=== PATIENT | male | born 1950 | race Caucasian/White ===

== ENCOUNTER 2017-09-13 09:06 | Emergency (ER) | payer MEDICARE, BC ==
[2017-09-13] MEDS ORDERED: oxyCODONE 5 MG TABLET PO STA (09:29)
--- NOTE | 2017-09-13 09:59 | ED Physician Documentation ---
History of Present Illness - Stated complaint Stated Complaint: RIB PX/GLF - Chief complaint Chief Complaint: General - Additonal information Additional information: slipped on wet floor and landed on l side injuring ribs no head neck abd or ext injuries no blood thinners Review of Systems Constitutional: denies: Fever Cardiac: reports: Chest pain / pressure Respiratory: reports: Dyspnea (2/2 pain) GI: denies: Abdominal Pain Musculoskeletal: reports: Back pain (ribs). denies: Extremity pain Endocrine: denies: Easy bruising / bleeding PD PAST MEDICAL HISTORY - Past Surgical History Past Surgical History: Yes - Present Medications Home Medications: Ambulatory Orders Medication Instructions Recorded Confirmed Cyclobenzaprine [Flexeril] 10 mg PO TID PRN #20 tablet 09/13/17 Gabapentin [Neurontin] 300 mg PO TID 09/13/17 09/13/17 Ibuprofen [Motrin] 400 mg PO Q6H PRN #30 tablet 09/13/17 Lidocaine Patch 5% [Lidoderm Patch] 1 each TOP DAILY PRN #10 patch 09/13/17 oxyCODONE [Roxicodone] 5 mg PO Q4-6H PRN #20 tablet 09/13/17 - Allergies Allergies/Adverse Reactions: Allergies Allergy/AdvReac Type Severity Reaction Status Date / Time No Known Drug Allergies Allergy Verified 09/13/17 10:16 - Social History Does the pt smoke?: No Smoking Status: Never smoker Does the pt drink ETOH?: Yes - Immunizations Immunizations are current?: Yes PD ED PE NORMAL - Vitals Vital signs reviewed: Yes - HEENT HEENT: Atraumatic - Neck Neck: No bony TTP - Cardiac Cardiac: RRR - Respiratory Respiratory: No respiratory distress, Clear bilaterally, Other (+ TTP L lateral mid to low ribs with palp and movement) - Abdomen Abdomen: Soft, Non tender, Other (no spleen TTP) - Back Back: No spinal TTP - Derm Derm: Normal color - Neuro Neuro: Alert and oriented X 3 Results - Vitals Vitals: Vital Signs - 24 hr 09/13/17 09/13/17 09:15 10:26 Temperature 36.2 C L 36.7 C Heart Rate 65 64 Respiratory 18 16 Rate Blood Pressure 141/79 H 114/83 H O2 Saturation 100 100 Oxygen O2 Source Room air - Rads (name of study) CXR with ribs Radiology: See rad report (neg per rad but I see a mildly displaced L 8th posterior lateral rib fx, no pneumo hemo or contusion) Departure - Departure Disposition: 01 Home, Self Care Clinical Impression: Rib fracture Qualifiers: Encounter type: initial encounter Rib fracture type: single rib Fracture type: closed Laterality: left Qualified Code(s): S22.32XA - Fracture of one rib, left side, initial encounter for closed fracture Condition: Good Instructions: ED Fx Rib Follow-Up: Ana M Andino PA [Primary Care Provider] - Prescriptions: Cyclobenzaprine [Flexeril] 10 mg PO TID PRN #20 tablet PRN Reason: Spasms Ibuprofen [Motrin] 400 mg PO Q6H PRN #30 tablet PRN Reason: Pain Lidocaine Patch 5% [Lidoderm Patch] 1 each TOP DAILY PRN #10 patch PRN Reason: Pain oxyCODONE [Roxicodone] 5 mg PO Q4-6H PRN #20 tablet PRN Reason: Pain Comments: Your broke the left 8th rib Thankfully there is no lung contusion or collapse. It is safe for you to go home. I have prescribed medication for the pain Please use the incentive spirometer to prevent lung collapse and pneumonia. Follow up with your PMD for a recheck later this week Return if significantly worse as discussed
--- NOTE | 2017-09-13 10:01 | XRAY Report ---
EXAM: LEFT RIB RADIOGRAPHY EXAM DATE: 09/13/2017 09:53 AM. CLINICAL HISTORY: Fall L rib pain. COMPARISON: None. TECHNIQUE: 1 view of the chest and 2 views of the ribs. FINDINGS: Bones: No rib fractures seen. Old left mid clavicular fracture with remodeling. Lungs: No focal opacities. No pneumothorax. No pleural effusions. Mediastinum: Heart and mediastinal contours are unremarkable. Other: None. IMPRESSION: 1. No rib fractures seen 2. Old left midclavicular fracture with remodeling [facility] Referring Provider Line: [phone] SITE ID: [id number]
--- NOTE | 2017-09-13 10:01 | XRAY Preliminary Report ---
Exam: XR RIBS W/PA CHEST LT IMPRESSION: 1. No rib fractures seen 2. Old left midclavicular fracture with remodeling [facility] SITE ID: [id number]
[2017-09-13 10:27] VITALS: BP 114/83
[2017-09-13] MEDS ORDERED: LIDOCAINE PATCH 5% TOP PRN (10:50)
[2017-09-13] MEDS ORDERED: KETOROLAC 60 MG/2 ML VIAL IM STA (11:25)
[2017-09-13] MEDS ORDERED: CYCLOBENZAPRINE 10 MG TABLET PO STA (11:25)
== END 2017-09-13 11:45 | disposition home or self-care (01) ==
LOC: ED 09:06
DX: S22.32XA Fracture of one rib, left side, initial encounter for closed fracture (principal); W01.10XA Fall on same level from slipping, tripping and stumbling with subsequent striking against unspecified object, initial encounter; Y93.E1 Activity, personal bathing and showering
CPT/HCPCS: 71101; 96372; 99283; A9270

== ENCOUNTER 2017-09-27 12:24 | Emergency (ER) | payer MEDICARE, BC ==
--- NOTE | 2017-09-27 15:17 | ED Physician Documentation ---
History of Present Illness - Stated complaint Stated Complaint: SIDE PX/LUMP - Chief complaint Chief Complaint: General - History obtained from History obtained from: Patient - History of Present Illness Timing: Other (67-year-old gentleman who a few weeks ago fell against a countertop and broke his left eighth rib. Over the last 4 days has noted a lump and increased pain in the left upper quadrant. He went to his doctor's office and he was referred here for possible splenic injury. He denies any new lightheadedness or syncope.) Review of Systems Constitutional: denies: Fever, Chills Throat: denies: Dental pain / toothache, Sore throat Cardiac: denies: Chest pain / pressure, Palpitations Respiratory: denies: Dyspnea PD PAST MEDICAL HISTORY - Past Medical History Cardiovascular: None Respiratory: None Neuro: None Endocrine/Autoimmune: None GI: None : None HEENT: None Psych: None Musculoskeletal: None Derm: None - Past Surgical History Past Surgical History: Yes Ortho: Spine surgery - Present Medications Home Medications: Ambulatory Orders Medication Instructions Recorded Confirmed Cyclobenzaprine [Flexeril] 10 mg PO TID PRN #20 tablet 09/13/17 Gabapentin [Neurontin] 300 mg PO TID 09/13/17 09/13/17 Ibuprofen [Motrin] 400 mg PO Q6H PRN #30 tablet 09/13/17 Lidocaine Patch 5% [Lidoderm Patch] 1 each TOP DAILY PRN #10 patch 09/13/17 oxyCODONE [Roxicodone] 5 mg PO Q4-6H PRN #20 tablet 09/13/17 - Allergies Allergies/Adverse Reactions: Allergies Allergy/AdvReac Type Severity Reaction Status Date / Time No Known Drug Allergies Allergy Verified 09/13/17 10:16 - Social History Does the pt smoke?: No Smoking Status: Never smoker Does the pt drink ETOH?: Yes Does the pt have substance abuse?: No - Immunizations Immunizations are current?: Yes - POLST Patient has POLST: No PD ED PE NORMAL - Vitals Vital signs reviewed: Yes - General General: Alert and oriented X 3, No acute distress - Neck Neck: Supple, no meningeal sign, No bony TTP - Cardiac Cardiac: RRR, No murmur - Respiratory Respiratory: No respiratory distress, Clear bilaterally - Abdomen Abdomen: Other (He complains about a lump in the left upper quadrant, I'm unable to feel anything, there is no significant tenderness.) - Neuro Neuro: Alert and oriented X 3, Normal speech Results - Vitals Vitals: Vital Signs - 24 hr 09/27/17 09/27/17 12:35 15:24 Temperature 36.8 C 36.9 C Heart Rate 73 72 Respiratory 16 17 Rate Blood Pressure 135/83 H 114/72 O2 Saturation 99 100 Oxygen O2 Source Room air - Rads (name of study) CT Abd Radiology: EMP read contemporaneously (Left 10th and 11th rib fractures) PD MEDICAL DECISION MAKING - ED course ED course: 67-year-old gentleman with a sensation of a lump in the anterior abdominal wall status post recent rib fracture and sent here for concern of splenic injury so a CT was done after negative bedside ultrasound showing no acute abnormality except for the rib fractures. - Sepsis Event Vital Signs: Vital Signs - 24 hr 18 09/27/17 12:35 15:24 Temperature 36.8 C 36.9 C Heart Rate 73 72 Respiratory 16 17 Rate Blood Pressure 135/83 H 114/72 O2 Saturation 99 100 Oxygen O2 Source Room air Departure - Departure Disposition: 01 Home, Self Care Clinical Impression: Abdominal swelling Rib fracture Qualifiers: Encounter type: subsequent encounter Rib fracture type: multiple ribs Fracture type: closed Laterality: left Fracture healing: with routine healing Qualified Code(s): S22.42XD - Multiple fractures of ribs, left side, subsequent encounter for fracture with routine healing Condition: Good Record reviewed to determine appropriate education?: Yes Instructions: ED Fx Rib Comments: Call your doctor to arrange a follow-up appointment, make the next available appointment. In the interim, return anytime if worse or if new symptoms develop.
[2017-09-27 15:27] VITALS: BP 114/72
--- NOTE | 2017-09-27 16:23 | CT Report ---
Procedure Date: 09/27/2017 Accession Number: [id number] / [id number] Procedure: CT - Abdomen W/O CPT Code: FULL RESULT: EXAM: CT ABDOMEN EXAM DATE: 09/27/2017 03:58 PM. CLINICAL HISTORY: Anterior abdomen pain. History of left eighth rib fracture. LUQ trauma 2 weeks ago. COMPARISON: None. TECHNIQUE: Routine helical CT imaging was performed through the abdomen. IV contrast: None Enteric contrast: No. Reconstruction: Coronal and sagittal. In accordance with CT protocol optimization, one or more of the following dose reduction techniques were utilized for this exam: automated exposure control, adjustment of mA and/or KV based on patient size, or use of iterative reconstructive technique. FINDINGS: Lung Bases: Mitral valve calcifications noted. Mild atelectasis in the bases. Liver: Normal. No masses. Gallbladder/Bile Ducts: Unremarkable. Spleen: Normal. Pancreas: Normal. Adrenal Glands: Normal. Kidneys: Normal. No masses or hydronephrosis. Peritoneal Cavity/Bowel: Mild diverticulosis. No free fluid, free air or adenopathy. No masses or acute inflammatory process. The appendix is well visualized and normal. Vasculature: No aneurysms or other significant abnormality. Bones: Left posterior 10th and 11th rib fractures noted. No other fractures identified. Advanced degenerative disk disease at L4-L5 and L5-S1. Other: None. IMPRESSION: 1. Posterior left 10th and 11th rib fractures. 2. No anterior abnormalities to explain upper abdomen swelling. [facility]
== END 2017-09-27 16:39 | disposition home or self-care (01) ==
LOC: ED 12:24
DX: S22.42XD Multiple fractures of ribs, left side, subsequent encounter for fracture with routine healing (principal); W19.XXXD Unspecified fall, subsequent encounter; R19.02 Left upper quadrant abdominal swelling, mass and lump
CPT/HCPCS: 74150; 99283

== ENCOUNTER 2017-12-16 06:38 | Outpatient (CLI) | payer MEDICARE, BC | END 2017-12-16 06:39 | disposition critical access hospital (66) | LOC: EMS 06:38 | PROVIDERS: ATTEND Surgery | DX: R40.0 Somnolence (principal) | CPT/HCPCS: A0425; A0427 ==

== ENCOUNTER 2017-12-16 07:06 | Inpatient (IN) | payer MEDICARE, BC ==
[2017-12-16] MEDS ORDERED: SODIUM CHLORIDE 0.9% 1,000 ML IV ONE ×2 (07:16→08:59)
--- NOTE | 2017-12-16 07:20 | ED Physician Documentation ---
PD HPI ALTERED MENTAL STATUS - Stated complaint Stated Complaint: AMS - Chief complaint Chief Complaint: Neuro - History obtained from History obtained from: Patient, Family, EMS - History of Present Illness Timing - onset: Today Timing - duration: Minutes Timing - details: Abrupt onset, Still present Quality / character: Less responsive, Confused Associated symptoms: No: Fever, Headache, Stiff neck, Dyspnea, Cough, NVD, Urinary sx, General weakness, Focal weakness, Seizure activity, Syncope Contributing factors: Intoxicated. No: Anticoagulated Basline status: Alert and oriented X 3, Ambulatory, Independent Similar symptoms before: Has not had sx before Recently seen: Not recently seen - Additional information Additional information: 67-year-old male with a prior history of back surgery who is on some trazodone and Neurontin was noted this morning by his to be groggy and confused. She called 911. The patient was not much help with the history. He did admit that he might have taken more of his medications then normal and he has been drinking. He was noted in the field to have hypotension with a systolic blood pressure in the 80s he has been given 600 mL's of saline by the time he arrives to the emergency department. He is groggy but able to answer questions after a delay. Review of Systems Constitutional: denies: Fever Eyes: denies: Decreased vision Ears: denies: Ear pain Nose: denies: Congestion Throat: denies: Sore throat Cardiac: denies: Chest pain / pressure Respiratory: denies: Dyspnea, Cough GI: denies: Abdominal Pain, Nausea, Vomiting : denies: Dysuria, Frequency Skin: denies: Rash Musculoskeletal: reports: Back pain. denies: Neck pain, Extremity pain Neurologic: denies: Generalized weakness, Focal weakness, Numbness PD PAST MEDICAL HISTORY - Past Medical History Cardiovascular: None Respiratory: None Neuro: None Endocrine/Autoimmune: None GI: None : None HEENT: None Psych: None Musculoskeletal: None Derm: None - Past Surgical History Past Surgical History: Yes Ortho: Spine surgery - Present Medications Home Medications: Ambulatory Orders Medication Instructions Recorded Confirmed Gabapentin [Neurontin] 600 mg PO TID 09/13/17 12/16/17 Bupropion HCl [Bupropion Xl] 150 mg PO DAILY 12/16/17 12/16/17 Trazodone HCl 50 mg PO QPM PRN 12/16/17 12/16/17 - Allergies Allergies/Adverse Reactions: Allergies Allergy/AdvReac Type Severity Reaction Status Date / Time No Known Drug Allergies Allergy Verified 12/16/17 07:15 - Social History Does the pt smoke?: No Smoking Status: Never smoker Does the pt drink ETOH?: Yes Does the pt have substance abuse?: No - Immunizations Immunizations are current?: Yes - POLST Patient has POLST: No PD ED PE NORMAL - Vitals Vital signs reviewed: Yes (tachy) - General General: No acute distress, Well developed/nourished, Other (The patient is able to answer appropriately but has delay in execution of motor commands. ) - HEENT HEENT: Atraumatic, PERRL, EOMI, Other (ear plugs are in both ears ) - Neck Neck: Supple, no meningeal sign, No bony TTP - Cardiac Cardiac: RRR, No murmur - Respiratory Respiratory: No respiratory distress, Clear bilaterally - Abdomen Abdomen: Soft, Non tender - Back Back: No CVA TTP, No spinal TTP - Derm Derm: Normal color, Warm and dry, No rash - Extremities Extremities: No deformity, No edema - Neuro Neuro: No motor deficit, No sensory deficit Eye Opening: Spontaneous Motor: Obeys Commands Verbal: Oriented GCS Score: 15 - Psych Psych: Normal mood, Normal affect Results - Vitals Vitals: Vital Signs - 24 hr 12/16/17 12/16/17 07:11 09:15 Temperature 36.3 C L Heart Rate 118 H 58 L Respiratory 18 12 Rate Blood Pressure 99/62 116/80 O2 Saturation 98 100 Oxygen O2 Source Nasal cannula Oxygen Flow Rate 2 - EKG (time done) 0729 Rate: Rate (enter#) (60) Ischemia: Normal ST segments Compare to prior EKG: Old EKG unavailable Computer interpretation: Agree with computer - Labs Labs: Laboratory Tests 12/16/17 12/16/17 12/16/17 07:40 07:40 07:40 WBC 5.4 RBC 3.81 L Hgb 13.7 L Hct 38.7 L MCV 101.7 H MCH 36.1 H MCHC 35.5 RDW 12.3 Plt Count 217 MPV 7.8 Neut # (Auto) 4.2 Lymph # (Auto) 1.0 L [place] # (Auto) 0.2 Eos # (Auto) 0.0 Baso # (Auto) 0.0 Absolute Nucleated RBC 0.00 Nucleated RBC % 0.0 Sodium 141 Potassium 4.3 Chloride 106 Carbon Dioxide 23 Anion Gap 12.0 BUN 16 Creatinine 0.8 Estimated GFR (MDRD) 96 Glucose 111 H Lactic Acid Calcium 8.3 L Total Bilirubin 0.9 AST 50 H ALT 33 Alkaline Phosphatase 40 L Troponin I < 0.04 Total Protein 6.2 L Albumin 3.9 Globulin 2.3 Albumin/Globulin Ratio 1.7 Lipase 25 Urine Color Urine Clarity Urine pH Ur Specific [place] Urine Protein Urine Glucose (UA) Urine Ketones Urine Occult Blood Urine Nitrite Urine Bilirubin Urine Urobilinogen Ur Leukocyte Esterase Ur Microscopic Review Urine Culture Comments Urine Opiates Screen Ur Oxycodone Screen Urine Methadone Screen Ur Propoxyphene Screen Ur Barbiturates Screen Ur Tricyclics Screen Ur Phencyclidine Scrn Ur Amphetamine Screen U Methamphetamines Scrn U Benzodiazepines Scrn Urine Cocaine Screen U Cannabinoids Screen Ethyl Alcohol 7.5 12/16/17 12/16/17 07:40 09:20 WBC RBC Hgb Hct MCV MCH MCHC RDW Plt Count MPV Neut # (Auto) Lymph # (Auto) [place] # (Auto) Eos # (Auto) Baso # (Auto) Absolute Nucleated RBC Nucleated RBC % Sodium Potassium Chloride Carbon Dioxide Anion Gap BUN Creatinine Estimated GFR (MDRD) Glucose Lactic Acid 2.3 H Calcium Total Bilirubin AST ALT Alkaline Phosphatase Troponin I Total Protein Albumin Globulin Albumin/Globulin Ratio Lipase Urine Color YELLOW Urine Clarity CLEAR Urine pH 6.5 Ur Specific [place] 1.020 Urine Protein NEGATIVE Urine Glucose (UA) NEGATIVE Urine Ketones NEGATIVE Urine Occult Blood NEGATIVE Urine Nitrite NEGATIVE Urine Bilirubin NEGATIVE Urine Urobilinogen 0.2 (NORMAL) Ur Leukocyte Esterase NEGATIVE Ur Microscopic Review NOT INDICATED Urine Culture Comments NOT INDICATED Urine Opiates Screen NEGATIVE Ur Oxycodone Screen NEGATIVE Urine Methadone Screen NEGATIVE Ur Propoxyphene Screen NEGATIVE Ur Barbiturates Screen NEGATIVE Ur Tricyclics Screen NEGATIVE Ur Phencyclidine Scrn NEGATIVE Ur Amphetamine Screen NEGATIVE U Methamphetamines Scrn NEGATIVE U Benzodiazepines Scrn NEGATIVE Urine Cocaine Screen NEGATIVE U Cannabinoids Screen NEGATIVE Ethyl Alcohol - Rads (name of study) CT head without Radiology: Prelim report reviewed (Impression: No acute intracranial hemorrhage , CT evidence of acute infarct, mass-effect, or other acute abnormality.), EMP read indepedently, See rad report CXR 2 view Radiology: Prelim report reviewed ( Impression: No consolidation evident.), EMP read indepedently, See rad report Procedures - IVC sono (time) 0715 Bedside IVC sono: IVC measures (cm) (1.54), Euvolemia (after 600ml in.) PD MEDICAL DECISION MAKING - ED course Complexity details: reviewed old records, reviewed results, re-evaluated patient , considered differential, d/w patient, d/w family ED course: 67-year-old male with a history of depression has had an increase in his depression recently and it appears last night he may have taken an overdose of his trazodone. He woke this morning very groggy his was unable to arouse him and he comes to the emergency department now with altered level of consciousness. He arrives to the emergency department with hypotension that is responsive to fluids and over a period of 3 hours he has improvement in his level of consciousness and he does admit to taking all the medications and all 3 of his pill bottles last night. Dr. Child is consulted in the case and will admit the patient to the CCU for medical clearance and psychiatric evaluation. - Sepsis Event Vital Signs: Vital Signs - 24 hr 12/16/17 12/16/17 07:11 09:15 Temperature 36.3 C L Heart Rate 118 H 58 L Respiratory 18 12 Rate Blood Pressure 99/62 116/80 O2 Saturation 98 100 Oxygen O2 Source Nasal cannula Oxygen Flow Rate 2 Departure - Departure Disposition: 66 [facility] DC/Xfer Clinical Impression: Altered mental status Qualifiers: Altered mental status type: transient alteration of awareness Qualified Code(s) : R40.4 - Transient alteration of awareness Medication overdose Qualifiers: Encounter type: initial encounter Injury intent: undetermined intent Qualified Code(s): T50.904A - Poisoning by unspecified drugs, medicaments and biological substances, undetermined, initial encounter Condition: Stable
[2017-12-16 07:57] LABS: BASOPHILS % (AUTO) 0.4 %; EOSINOPHILS % (AUTO) 0.2 %; HGB - HEMOGLOBIN 13.7 g/dL (14.0-18.0); LYMPHOCYTES % (AUTO) 17.9 %; MEAN CORPUSCULAR HEMOGLOBIN 36.1 pg (27.0-31.0); MEAN CORPUSCULAR HGB CONC 35.5 g/dL (32.0-36.0); MEAN CORPUSCULAR VOLUME 101.7 fL (80.0-94.0); MEAN PLATELET VOLUME 7.8 fL (7.4-11.4); MONOCYTES # (AUTO) 0.2 10^3/uL (0.0-1.0); MONOCYTES % (AUTO) 4.4 %; NEUTROPHILS # (AUTO) 4.2 10^3/uL (1.5-6.6); NEUTROPHILS % (AUTO) 77.1 %; PLT - PLATELET COUNT 217 10^3/uL (130-450); RED BLOOD COUNT 3.81 10^6/uL (4.70-6.10); RED CELL DISTRIBUTION WIDTH 12.3 % (12.0-15.0); WHITE BLOOD COUNT 5.4 x10^3/uL (4.8-10.8)
[2017-12-16 08:10] LABS: ALBUMIN 3.9 g/dL (3.2-5.5); ALBUMIN/GLOBULIN RATIO 1.7 (1.0-2.2); BILIRUBIN,TOTAL 0.9 mg/dL (0.2-1.0); CALCIUM 8.3 mg/dL (8.5-10.3); CREATININE 0.8 mg/dL (0.6-1.2); TOTAL PROTEIN 6.2 g/dL (6.7-8.2)
--- NOTE | 2017-12-16 09:15 | CT Report ---
Reason: altered LOC Procedure Date: 12/16/2017 Accession Number: [id number] / [id number] Procedure: CT - Head W/O CPT Code: FULL RESULT: EXAM: CT HEAD EXAM DATE: 12/16/2017 09:01 AM. CLINICAL HISTORY: Altered level of consciousness. COMPARISON: None. TECHNIQUE: Multiaxial CT images were obtained from the foramen magnum to the vertex. Reformats: Coronal. IV contrast: None. In accordance with CT protocol optimization, one or more of the following dose reduction techniques were utilized for this exam: automated exposure control, adjustment of mA and/or KV based on patient size, or use of iterative reconstructive technique. FINDINGS: Parenchyma: No intraparenchymal hemorrhage. No evidence of mass, midline shift, or CT findings of infarction. Sinha-white differentiation is distinct. Extraaxial Spaces: There is an incidental probable arachnoid cyst along the medial aspect of the left lobe of the cerebellum adjacent to the falx. no hemorrhagic subdural or epidural collections identified. Ventricles: Normal in size and position. Sinuses and Orbits: Imaged paranasal sinuses, orbits, and mastoids show no significant abnormality. Bones: No evidence of fracture or calvarial defect. Other: None. IMPRESSION: No intracranial hemorrhage, CT evidence of acute infarct, mass effect, or other acute abnormality. [facility]
[2017-12-16 09:36] LABS: MUDS CUTOFF CONCENTRATIONS CUTOFF CONC BELOW:
[2017-12-16 09:39] LABS: BILIRUBIN,URINE NEGATIVE (NEGATIVE); GLUCOSE, URINE (UA) NEGATIVE (NEGATIVE); KETONES,URINE (UA) NEGATIVE (NEGATIVE); LEUKOCYTE ESTERASE, URINE NEGATIVE (NEGATIVE); NITRITE,URINE NEGATIVE (NEGATIVE); OCCULT BLOOD,URINE NEGATIVE (NEGATIVE); PH,URINE 6.5 PH (5.0-7.5); PROTEIN,URINE NEGATIVE (NEGATIVE); UROBILINOGEN,URINE 0.2 (NORMAL) E.U./dL (NORMAL)
[2017-12-16 09:49] LABS: AMPHETAMINE SCREEN,URINE NEGATIVE (NEGATIVE); BENZODIAZEPINES SCREEN, URINE NEGATIVE (NEGATIVE); CLARITY,URINE CLEAR (CLEAR); COCAINE SCREEN URINE NEGATIVE (NEGATIVE); METHADONE SCREEN, URINE NEGATIVE (NEGATIVE); METHAMPHETAMINES SCREEN, URINE NEGATIVE (NEGATIVE); OPIATE SCREEN, URINE NEGATIVE (NEGATIVE); OXYCODONE SCREEN, URINE NEGATIVE (NEGATIVE); PROPOXYPHENE SCREEN, URINE NEGATIVE (NEGATIVE); TRICYCLIC ANTIDEPRESSANT,URINE NEGATIVE (NEGATIVE)
--- NOTE | 2017-12-16 09:54 | XRAY Report ---
Reason: altered LOC hypotensive Procedure Date: 12/16/2017 Accession Number: [id number] / [id number] Procedure: XR - Chest 2 View X-Ray CPT Code: 98998 FULL RESULT: EXAM: CHEST RADIOGRAPHY EXAM DATE: 12/16/2017 09:07 AM. CLINICAL HISTORY: Altered LOC hypotensive. COMPARISON: RIBS W/PA CHEST LT 09/13/2017 XR CHEST PA AND LAT 01/02/2010. TECHNIQUE: 2 views. FINDINGS: Lungs/Pleura: No focal opacities evident. No pleural effusion. No pneumothorax. Normal volumes. Mediastinum: Heart and mediastinal contours are unremarkable. Other: Midthoracic spine degenerative disk changes with mild kyphosis. IMPRESSION: No consolidation evident. [facility]
[2017-12-16] MEDS ORDERED: PROCHLORPERAZINE 10 MG/2 ML VIAL IVP PRN (10:46)
[2017-12-16] MEDS: D5NS W/20 MEQ KCL 1,000 ML IV SCH ×3 (12:46→22:54)
[2017-12-16] MEDS: SODIUM CHLORIDE FLUSH 0.9% 10 ML SYRINGE IVP PRN (13:00)
[2017-12-16] MEDS: PANTOPRAZOLE 40 MG VIAL IVP SCH ×2 (13:41→21:04)
[2017-12-16] MEDS ORDERED: LORazepam 2 MG/ML VIAL IVP PRN (15:49)
[2017-12-16] MEDS: SODIUM CHLORIDE FLUSH 0.9% 10 ML SYRINGE IVP SCH ×2 (16:48→21:04)
--- NOTE | 2017-12-16 21:51 | HISTORY & PHYSICAL EXAMINATION ---
DATE OF SERVICE: 12/16/2017 Physician: Tracy Grider MD HISTORY OF PRESENT ILLNESS: This is a 67-year-old white male with a history of alcohol abuse, depression, complex PTSD, possibly 1 prior suicide attempt. The found him groggy and unarousable this morning and called 911. In the ambulance, he slowly began to awake and admitted that he took the entire contents of all 3 of his pill bottles with an intention to commit suicide. These bottles were filled with 170 tablets in total, and he states that he took them with peanut butter because he read that having peanut butter with a pill overdose prevents them from being vomited up. The pills were trazodone, bupropion, and gabapentin. In the emergency room, he was very somnolent and also mildly hypotensive. He was started on IV fluids and stabilized and also has slowly begun to awaken over the past several hours. He tells me that he is deeply worried about the state of people and their superficialness and [place]'s greed and the [employer] presidency, and for this reason he wanted to diel. The hints at the fact that he has done this previously. The also reports that he has complex PTSD. The patient states he has seen a psychiatrist in the past for 7 years and now is also following a provider for mental health for the last 3 years. He has not said the word suicide or that he still wants to kill himself. However, asked in different ways what his future plans are, he stated, "You want me to tell you if I have suicidal ideations in order to be institutionalized and then not released until someone else decides, right?" PAST MEDICAL HISTORY 1. Depression. 2. PTSD. 3. Alcohol abuse. 4. Prior suicide attempt, possibly. MEDICATIONS 1. Trazodone 50 mg every evening. 2. Gabapentin 600 mg t.i.d. 3. Bupropion XL 150 mg daily. ALLERGIES: NONE. SOCIAL HISTORY: Smoking: None. Alcohol use: 6-10 beers per day. Illicit drug use: Currently none but heavy in his earlier life. He states that he was in [facility] 2 times. He states he got complex PTSD after being in [place]. REVIEW OF SYSTEMS: A comprehensive review of systems was performed, and the pertinent positives are in the HPI. FAMILY HISTORY: No inherited diseases. PHYSICAL EXAMINATION GENERAL: White male who is speaking slowly but clearly with a hoarse voice. He is in a supine position. He is in the ICU with one-to-one observation. VITAL SIGNS: Blood pressure 118/82, pulse of 56, sinus rhythm, afebrile, room air saturation 100%. HEENT: Reveals dry oral mucosa. Good dentition. NECK: Without JVD. No carotid bruits. LUNGS: Clear. HEART: Sounds normal. ABDOMEN: Soft with positive bowel sounds, nontender. No organomegaly. EXTREMITIES: No clubbing, cyanosis, edema. NEUROLOGIC: Intact but appears lethargic and is bradykinetic. DIAGNOSTIC STUDIES: EKG: Normal sinus rhythm and within normal limits. Chest x-ray within normal limits. LABORATORY STUDIES: Normal electrolytes. Normal BUN and creatinine. Lactic acid 2.3. AST 50, ALT 33. Troponin not detectable. Lipase normal. Toxicology of the urine showed alcohol level of 7.5 and otherwise negative. CBC showed a white count of 5.4, hemoglobin 13.7, with MCV elevated at 101, platelet count 217. Urinalysis unremarkable. IMPRESSION/DIAGNOSES 1. Intentional suicide overdose with pills. 2. Dehydration. 3. Altered mental status after sedative intake. 4. Depression history. 5. Alcohol abuse history. 6. Complex posttraumatic stress disorder history. PLAN: Continue in the ICU with one-to-one observation for potential suicide attempt. Contact social work and contact the Department of Mental Health when he is medically stable for further management of this suicide attempt. Begin CIWA protocol to assess for alcohol withdrawal, and Ativan will be used to treat that. Continue with IV hydration. While he is lethargic, clear liquids will be started, and if he does awaken, the diet can be advanced. CODE STATUS: FULL CODE. DEEP VENOUS THROMBOSIS PROPHYLAXIS: MARÍA stockings and SCDs. ATTESTATION: The patient is expected to be discharged or transferred to another facility within 96 hours: Yes. TD: 12/16/2017 16:09 RIGOBERTO
[2017-12-17] MEDS: D5NS W/20 MEQ KCL 1,000 ML IV SCH ×5 (03:58→23:12)
[2017-12-17 05:41] LABS: BASOPHILS % (AUTO) 0.6 %; EOSINOPHILS # (AUTO) 0.1 10^3/uL (0.0-0.7); EOSINOPHILS % (AUTO) 1.8 %; LYMPHOCYTES # (AUTO) 1.9 10^3/uL (1.5-3.5); LYMPHOCYTES % (AUTO) 27.5 %; MEAN CORPUSCULAR HEMOGLOBIN 36.7 pg (27.0-31.0); MEAN CORPUSCULAR HGB CONC 35.5 g/dL (32.0-36.0); MEAN CORPUSCULAR VOLUME 103.2 fL (80.0-94.0); MEAN PLATELET VOLUME 8.2 fL (7.4-11.4); MONOCYTES # (AUTO) 0.5 10^3/uL (0.0-1.0); MONOCYTES % (AUTO) 7.9 %; NEUTROPHILS # (AUTO) 4.2 10^3/uL (1.5-6.6); NEUTROPHILS % (AUTO) 62.2 %; PLT - PLATELET COUNT 180 10^3/uL (130-450); RED BLOOD COUNT 3.28 10^6/uL (4.70-6.10); RED CELL DISTRIBUTION WIDTH 12.3 % (12.0-15.0); WHITE BLOOD COUNT 6.8 x10^3/uL (4.8-10.8)
[2017-12-17 06:13] LABS: ALBUMIN 3.1 g/dL (3.2-5.5); ALBUMIN/GLOBULIN RATIO 1.6 (1.0-2.2); CALCIUM 7.4 mg/dL (8.5-10.3); CREATININE 0.9 mg/dL (0.6-1.2); MAGNESIUM 2.2 mg/dL (1.7-2.8); PHOSPHORUS 2.5 mg/dL (2.5-4.6)
[2017-12-17] MEDS: SODIUM CHLORIDE FLUSH 0.9% 10 ML SYRINGE IVP PRN ×3 (06:38→20:26)
[2017-12-17] MEDS ORDERED: ACETAMINOPHEN 325 MG TABLET PO PRN (07:15)
[2017-12-17] MEDS ORDERED: ONDANSETRON 4 MG/2 ML VIAL IVP PRN (07:15)
[2017-12-17 07:38] LABS: VBG PH 7.338 (7.31-7.41)
[2017-12-17] MEDS: SODIUM CHLORIDE FLUSH 0.9% 10 ML SYRINGE IVP SCH ×2 (08:21→16:38)
[2017-12-17] MEDS: PANTOPRAZOLE 40 MG VIAL IVP SCH ×2 (08:22→20:26)
[2017-12-17] MEDS ORDERED: CALCIUM GLUCONATE 1,000 MG in SODIUM CHLORIDE 0.9% 50 ML IV ONE (08:30)
[2017-12-17] MEDS: POLYETHYLENE GLYCOL 3350 17 GM PACKET PO SCH (08:42)
[2017-12-17] MEDS: MORPHINE 2 MG/ML CARPUJECT IVP PRN ×2 (10:01→20:26)
--- NOTE | 2017-12-17 11:09 | PROVIDER PROGRESS NOTE ---
Assessment/Plan - Problem List (1) Medication overdose Qualifiers: Encounter type: initial encounter Injury intent: undetermined intent Qualified Code(s): T50.904A - Poisoning by unspecified drugs, medicaments and biological substances, undetermined, initial encounter Assessment/Plan: The RN was informed that he also had a bottle of Propranolol which was part of the 170 tablets that he ingested. He has been bradycardic since admission. Continue telemetry Continue 1:1 monitoring for suicide risk. (2) Altered mental status Qualifiers: Altered mental status type: transient alteration of awareness Qualified Code(s): R40.4 - Transient alteration of awareness Assessment/Plan: The patient was a 13 on the CIWA scale this am and Ativan was given. Now he is somnolent. He is now 24 hours since his last alcohol intake. Continue to monitor for alcohol withdrawal and DTs. Continue supportive Care for the antidepressants (Bupropion tablets), sedatives (Trazadone) and pain meds (Neurontin) that he swallowed. He is awakening to take 100% of his clear liquid diet. Will advance diet to soft diet. (3) Alcohol withdrawal Assessment/Plan: The patient was a 13 on the CIWA scale this am and Ativan was given. Now he is somnolent. He is now 24 hours since his last alcohol intake. Continue to monitor for alcohol withdrawal and DTs. Continue CIWA protocol. Will check B12 and Folate levels. Will start daily Thiamine. (4) Joint pain Assessment/Plan: Unclear if this is from his drug overdose or a sign of impending fever/infection , or his chronic symptom. Will treat pain with iv Ketorolac to avoid narcotic meds and potentially hepatotoxic meds like Acetominophen. Monitor LFTs daily. - Current Meds Current Meds: Current Medications Generic Name Dose Route Start Last Admin Trade Name Freq PRN Reason Stop Dose Admin Potassium Chloride/Dextrose/Sod Cl 1,000 mls @ 200 mls/hr 12/16/17 11:00 06/04 10:15 IV 0 mls/hr .Q5H ARNOL Infusion Lorazepam 2 mg 12/16/17 15:49 12/17/17 06:38 Ativan Inj (Vial) IVP 2 mg Q2H PRN Administration Anxiety Morphine Sulfate 2 mg 12/17/17 07:19 09/02/18 10:01 Morphine (Carpuject) IVP 2 mg Q2HR PRN Administration PAIN Pantoprazole Sodium 40 mg 12/16/17 11:00 12/17/17 08:22 Protonix IVP 40 mg BID ARNOL Administration Polyethylene Glycol 17 gm 12/17/17 09:00 12/17/17 08:42 Miralax PO 17 gm DAILY ARNOL Administration Sodium Chloride 10 ml 12/16/17 17:00 12/17/17 08:21 Normal Saline Flush 0.9% IVP 10 ml 0100,0900,1700 ARNOL Administration Sodium Chloride 10 ml 12/16/17 10:46 12/17/17 06:38 Normal Saline Flush 0.9% IVP 10 ml PRN PRN Administration NEEDED PER PROVIDER ORDERS - Lab Result Fish Bone Diagrams: 12/17/17 05:04 12/17/17 05:04 - Additional Planning My Orders: My Active Orders 12/16/17 10:54 CIWA-Ar Score Assessment [RC] Q4H 12/16/17 15:49 LORazepam INJ [Ativan Inj (Vial)] 2 mg IVP Q2H PRN 12/17/17 09:00 Polyethylene Glycol 3350 [Miralax] 17 gm PO DAILY Subjective - Subjective Patient Reports: Feeling Better, Resting Comfortably Nursing Reports: Other (BP slightly elevated but no tachycardia. Compains of headache and joint aches.) Objective Vital Signs: Vital Signs - 24 hr 12/16/17 12/16/17 12/16/17 12:00 12:15 12:30 Temperature 36.4 C L Heart Rate [ 57 L 56 L 58 L Monitoring electrodes] Respiratory 14 11 L 13 Rate Blood Pressure 111/77 121/78 122/79 [Right Brachial artery] O2 Saturation 97 99 98 12/16/17 12/16/17 12/16/17 12:45 13:00 13:30 Temperature Heart Rate [ 56 L 56 L 56 L Monitoring electrodes] Respiratory 14 15 12 Rate Blood Pressure 118/82 H 92/81 H 112/69 [Right Brachial artery] O2 Saturation 100 98 100 12/16/17 12/16/17 12/16/17 14:00 15:00 16:00 Temperature 36.4 C L Heart Rate [ 54 L 58 L 57 L Monitoring electrodes] Respiratory 13 13 16 Rate Blood Pressure 109/85 H 116/63 116/73 [Right Brachial artery] O2 Saturation 98 97 100 12/16/17 12/16/17 12/16/17 17:00 18:00 19:00 Temperature Heart Rate [ 57 L 60 57 L Monitoring electrodes] Respiratory 14 21 18 Rate Blood Pressure 115/72 105/75 120/78 [Right Brachial artery] O2 Saturation 98 99 95 12/16/17 12/16/17 12/16/17 20:00 21:00 22:00 Temperature 36.6 C Heart Rate [ 58 L 60 62 Monitoring electrodes] Respiratory 19 17 17 Rate Blood Pressure 111/73 89/54 L 96/60 [Right Brachial artery] O2 Saturation 96 94 95 12/16/17 12/17/17 12/17/17 23:00 00:00 01:00 Temperature Heart Rate [ 62 65 61 Monitoring electrodes] Respiratory 19 21 26 H Rate Blood Pressure 102/61 102/65 102/72 [Right Brachial artery] O2 Saturation 93 94 95 12/17/17 12/17/17 12/17/17 02:00 03:00 04:00 Temperature Heart Rate [ 61 61 60 Monitoring electrodes] Respiratory 19 18 21 Rate Blood Pressure 93/57 L 102/71 103/66 [Right Brachial artery] O2 Saturation 95 94 96 12/17/17 12/17/17 12/17/17 05:00 06:00 07:03 Temperature Heart Rate [ 60 60 53 L Monitoring electrodes] Respiratory 15 16 14 Rate Blood Pressure 111/54 L 110/72 127/86 H [Right Brachial artery] O2 Saturation 97 96 94 12/17/17 12/17/17 12/17/17 08:00 09:00 10:00 Temperature 36.6 C Heart Rate [ 58 L 57 L 53 L Monitoring electrodes] Respiratory 20 21 16 Rate Blood Pressure 98/63 127/87 H 136/81 H [Right Brachial artery] O2 Saturation 95 95 100 12/17/17 11:00 Temperature Heart Rate [ 53 L Monitoring electrodes] Respiratory 13 Rate Blood Pressure 132/90 H [Right Brachial artery] O2 Saturation 98 Oxygen O2 Source Room air I&O (Last 24 Hrs): Intake and Output Totals x24h 12/15/17 12/16/17 12/17/17 23:59 23:59 23:59 Intake Total 3873.333 4243.333 Output Total 775 1800 Balance 3098.333 2443.333 General: Alert, Oriented x3, Other (Hoarseness of voice) HEENT: Other (Dry oral mucosa) Neck: Supple Neuro: Non Focal Cardiovascular: No murmurs Respiratory: No respiratory distress, Breath sounds nml Abdomen: Soft Extremities: No edema - Results Results: Laboratory Results WBC 6.8 x10^3/uL (4.8-10.8) 12/17/17 05:04 RBC 3.28 10^6/uL (4.70-6.10) L 12/17/17 05:04 Hgb 12.0 g/dL (14.0-18.0) L 12/17/17 05:04 Hct 33.9 % (42.0-52.0) L 12/17/17 05:04 MCV 103.2 fL (80.0-94.0) H 12/17/17 05:04 MCH 36.7 pg (27.0-31.0) H 12/17/17 05:04 MCHC 35.5 g/dL (32.0-36.0) 12/17/17 05:04 RDW 12.3 % (12.0-15.0) 12/17/17 05:04 Plt Count 180 10^3/uL (130-450) 12/17/17 05:04 MPV 8.2 fL (7.4-11.4) 12/17/17 05:04 Neut # (Auto) 4.2 10^3/uL (1.5-6.6) 12/17/17 05:04 Lymph # (Auto) 1.9 10^3/uL (1.5-3.5) 12/17/17 05:04 [place] # (Auto) 0.5 10^3/uL (0.0-1.0) 12/17/17 05:04 Eos # (Auto) 0.1 10^3/uL (0.0-0.7) 12/17/17 05:04 Baso # (Auto) 0.0 10^3/uL (0.0-0.1) 12/17/17 05:04 Absolute Nucleated RBC 0.01 x10^3/uL 12/17/17 05:04 Nucleated RBC % 0.1 /100WBC 12/17/17 05:04 VBG pH 7.338 (7.31-7.41) 12/17/17 07:25 Ionized Calcium 1.09 mmol/L (1.15-1.33) L 12/17/17 07:25 Sodium 140 mmol/L (135-145) 12/17/17 05:04 Potassium 3.7 mmol/L (3.5-5.0) 12/17/17 05:04 Chloride 111 mmol/L (101-111) 12/17/17 05:04 Carbon Dioxide 24 mmol/L (21-32) 12/17/17 05:04 Anion Gap 5.0 (6-13) L 12/17/17 05:04 BUN 8 mg/dL (6-20) 12/17/17 05:04 Creatinine 0.9 mg/dL (0.6-1.2) 12/17/17 05:04 Estimated GFR (MDRD) 84 (>89) L 12/17/17 05:04 Glucose 129 mg/dL (70-100) H 12/17/17 05:04 Lactic Acid 1.1 mmol/L (0.5-2.2) 12/16/17 14:40 Calcium 7.4 mg/dL (8.5-10.3) L 12/17/17 05:04 Phosphorus 2.5 mg/dL (2.5-4.6) 12/17/17 05:04 Magnesium 2.2 mg/dL (1.7-2.8) 12/17/17 05:04 Total Bilirubin 1.0 mg/dL (0.2-1.0) 12/17/17 05:04 AST 53 IU/L (10-42) H 12/17/17 05:04 ALT 27 IU/L (10-60) 12/17/17 05:04 Alkaline Phosphatase 31 IU/L (42-121) L 12/17/17 05:04 Troponin I < 0.04 ng/mL (<0.49) 12/16/17 07:40 Total Protein 5.0 g/dL (6.7-8.2) L 12/17/17 05:04 Albumin 3.1 g/dL (3.2-5.5) L 12/17/17 05:04 Globulin 1.9 g/dL (2.1-4.2) L 12/17/17 05:04 Albumin/Globulin Ratio 1.6 (1.0-2.2) 12/17/17 05:04 Lipase 25 U/L (22-51) 12/16/17 07:40 Urine Color YELLOW 12/16/17 09:20 Urine Clarity CLEAR (CLEAR) 12/16/17 09:20 Urine pH 6.5 PH (5.0-7.5) 12/16/17 09:20 Ur Specific [place] 1.020 (1.002-1.030) 12/16/17 09:20 Urine Protein NEGATIVE mg/dL (NEGATIVE) 12/16/17 09:20 Urine Glucose (UA) NEGATIVE mg/dL (NEGATIVE) 12/16/17 09:20 Urine Ketones NEGATIVE mg/dL (NEGATIVE) 12/16/17 09:20 Urine Occult Blood NEGATIVE (NEGATIVE) 12/16/17 09:20 Urine Nitrite NEGATIVE (NEGATIVE) 12/16/17 09:20 Urine Bilirubin NEGATIVE (NEGATIVE) 12/16/17 09:20 Urine Urobilinogen 0.2 (NORMAL) E.U./dL (NORMAL) 12/16/17 09:20 Ur Leukocyte Esterase NEGATIVE (NEGATIVE) 12/16/17 09:20 Ur Microscopic Review NOT INDICATED 12/16/17 09:20 Urine Culture Comments NOT INDICATED 12/16/17 09:20 Urine Opiates Screen NEGATIVE (NEGATIVE) 12/16/17 09:20 Ur Oxycodone Screen NEGATIVE (NEGATIVE) 12/16/17 09:20 Urine Methadone Screen NEGATIVE (NEGATIVE) 12/16/17 09:20 Ur Propoxyphene Screen NEGATIVE (NEGATIVE) 12/16/17 09:20 Ur Barbiturates Screen NEGATIVE (NEGATIVE) 12/16/17 09:20 Ur Tricyclics Screen NEGATIVE (NEGATIVE) 12/16/17 09:20 Ur Phencyclidine Scrn NEGATIVE (NEGATIVE) 12/16/17 09:20 Ur Amphetamine Screen NEGATIVE (NEGATIVE) 12/16/17 09:20 U Methamphetamines Scrn NEGATIVE (NEGATIVE) 12/16/17 09:20 U Benzodiazepines Scrn NEGATIVE (NEGATIVE) 12/16/17 09:20 Urine Cocaine Screen NEGATIVE (NEGATIVE) 12/16/17 09:20 U Cannabinoids Screen NEGATIVE (NEGATIVE) 12/16/17 09:20 Ethyl Alcohol 7.5 mg/dL 12/16/17 07:40 ABX Reporting Has patient been on IV antibiotics over the past 48 hours?: No
[2017-12-17 12:06] LABS: FOLATE 19.46 ng/mL (5.90 - >24.8)
[2017-12-17] MEDS ORDERED: THIAMINE INJ 100 MG, FOLIC ACID INJ 1 MG in SODIUM CHLORIDE 0.9% 100ML 100 ML IV SCH (15:30)
[2017-12-17] MEDS: KETOROLAC 30 MG/ML VIAL IVP PRN (17:42)
[2017-12-18] MEDS: SODIUM CHLORIDE FLUSH 0.9% 10 ML SYRINGE IVP SCH ×4 (00:32→15:23)
[2017-12-18] MEDS: KETOROLAC 30 MG/ML VIAL IVP PRN ×3 (02:51→15:23)
[2017-12-18] MEDS: SODIUM CHLORIDE FLUSH 0.9% 10 ML SYRINGE IVP PRN (02:51)
[2017-12-18] MEDS: D5NS W/20 MEQ KCL 1,000 ML IV SCH (03:59)
[2017-12-18 05:30] LABS: BASOPHILS % (AUTO) 0.6 %; EOSINOPHILS # (AUTO) 0.2 10^3/uL (0.0-0.7); EOSINOPHILS % (AUTO) 2.7 %; HGB - HEMOGLOBIN 12.6 g/dL (14.0-18.0); LYMPHOCYTES % (AUTO) 26.9 %; MEAN CORPUSCULAR HEMOGLOBIN 36.8 pg (27.0-31.0); MEAN CORPUSCULAR VOLUME 102.4 fL (80.0-94.0); MEAN PLATELET VOLUME 7.9 fL (7.4-11.4); MONOCYTES # (AUTO) 0.6 10^3/uL (0.0-1.0); MONOCYTES % (AUTO) 8.6 %; NEUTROPHILS # (AUTO) 4.5 10^3/uL (1.5-6.6); NEUTROPHILS % (AUTO) 61.2 %; PLT - PLATELET COUNT 174 10^3/uL (130-450); RED BLOOD COUNT 3.43 10^6/uL (4.70-6.10); RED CELL DISTRIBUTION WIDTH 12.1 % (12.0-15.0); WHITE BLOOD COUNT 7.3 x10^3/uL (4.8-10.8)
[2017-12-18 05:40] LABS: ALBUMIN 3.3 g/dL (3.2-5.5); ALBUMIN/GLOBULIN RATIO 1.5 (1.0-2.2); BILIRUBIN,TOTAL 0.7 mg/dL (0.2-1.0); CALCIUM 8.2 mg/dL (8.5-10.3); CREATININE 0.6 mg/dL (0.6-1.2); MAGNESIUM 1.9 mg/dL (1.7-2.8); PHOSPHORUS 2.8 mg/dL (2.5-4.6); TOTAL PROTEIN 5.5 g/dL (6.7-8.2)
[2017-12-18] MEDS: PANTOPRAZOLE 40 MG TABLET PO SCH (08:18)
[2017-12-18] MEDS: POLYETHYLENE GLYCOL 3350 17 GM PACKET PO SCH (08:22)
[2017-12-18] MEDS: THIAMINE 100 MG TABLET PO SCH ×2 (08:23→12:26)
--- NOTE | 2017-12-18 13:53 | PROVIDER PROGRESS NOTE ---
Assessment/Plan - Problem List (1) Medication overdose Qualifiers: Encounter type: initial encounter Injury intent: undetermined intent Qualified Code(s): T50.904A - Poisoning by unspecified drugs, medicaments and biological substances, undetermined, initial encounter Assessment/Plan: Another medication that he took in overdose, was shared with me: He took Clonezepam. He also was able to tell me today that he took "96 pills of Propranolol", in addition to the others discussed yesterday. The pharmacy has the bottles which state Propranolol (not Propranolol [place]) 20 mg, 1 po daily prn anxiety. He is not cleared medically yet for Mental Health to accept him into a Psych unit, since he has lethargy and bradycardia and he is at the 3rd day post- alcohol intake and still at risk of going through alcohol withdrawal. I asked Social Work to see him today, since he requested a visit from Social Work. (2) Altered mental status Qualifiers: Altered mental status type: transient alteration of awareness Qualified Code(s): R40.4 - Transient alteration of awareness Assessment/Plan: The patient is still lethargic with slow speech. He is able to remember and/or share more about the details of his drug ingestions. He is awake enough to feed himself and tolerate solid food. (3) Alcohol withdrawal Assessment/Plan: Patient remains on a CIWA protocol. Labs show no B12 or Folate deficiency. (4) Joint pain Assessment/Plan: iv NSASIDs are prescribed prn for pain. - Current Meds Current Meds: Current Medications Generic Name Dose Route Start Last Admin Trade Name Freq PRN Reason Stop Dose Admin Ketorolac Tromethamine 30 mg 12/17/17 11:12 12/18/17 09:11 Toradol Inj (30mg) IVP 12/22/17 11:11 30 mg Q6HR PRN Administration PAIN Lorazepam 2 mg 12/16/17 15:49 12/17/17 06:38 Ativan Inj (Vial) IVP 2 mg Q2H PRN Administration Anxiety Morphine Sulfate 2 mg 12/17/17 07:19 12/17/17 20:26 Morphine (Carpuject) IVP 2 mg Q2HR PRN Administration PAIN Pantoprazole Sodium 40 mg 12/18/17 08:00 12/18/17 08:18 Protonix PO 40 mg QDAC ARNOL Administration Polyethylene Glycol 17 gm 12/17/17 09:00 12/18/17 08:22 Miralax PO 17 gm DAILY ARNOL Administration Sodium Chloride 10 ml 12/16/17 17:00 12/18/17 09:13 Normal Saline Flush 0.9% IVP 20 ml 0100,0900,1700 ARNOL Administration Sodium Chloride 10 ml 12/16/17 10:46 12/18/17 02:51 Normal Saline Flush 0.9% IVP 10 ml PRN PRN Administration NEEDED PER PROVIDER ORDERS Thiamine HCl 100 mg 12/18/17 08:00 12/18/17 12:26 Vitamin B-1 PO Not Given DAILY ARNOL - Lab Result Fish Bone Diagrams: 12/18/17 05:10 12/18/17 05:10 - Additional Planning My Orders: My Active Orders 12/17/17 Dinner DIET [Low Sodium Diet] [DIET] 12/18/17 08:00 Thiamine [Vitamin B-1] 100 mg PO DAILY Subjective - Subjective Patient Reports: Feeling Better, Other (Has his "chronic aches.") Nursing Reports: Other (Walked in hallway with his RN. Wants D[employer] to see him today.) Objective Vital Signs: Vital Signs - 24 hr 12/17/17 12/17/17 12/17/17 14:00 15:00 16:00 Temperature 36.8 C Heart Rate [ 62 59 L 60 Monitoring electrodes] Respiratory 13 14 15 Rate Blood Pressure 104/69 120/74 117/74 [Left Brachial artery] O2 Saturation 99 99 95 12/17/17 12/17/17 12/17/17 17:00 18:00 19:00 Temperature Heart Rate [ 67 65 64 Monitoring electrodes] Respiratory 11 L 20 21 Rate Blood Pressure 124/92 H 122/74 131/88 H [Left Brachial artery] O2 Saturation 98 97 96 12/17/17 12/17/17 12/17/17 20:00 21:00 22:00 Temperature 37.4 C Heart Rate [ 57 L 53 L 68 Monitoring electrodes] Respiratory 15 18 20 Rate Blood Pressure 131/74 H 148/76 H 107/69 [Left Brachial artery] O2 Saturation 96 95 95 12/17/17 12/18/17 12/18/17 23:00 00:00 01:00 Temperature Heart Rate [ 63 53 L 65 Monitoring electrodes] Respiratory 13 13 24 Rate Blood Pressure 113/73 110/78 100/58 L [Left Brachial artery] O2 Saturation 94 97 98 12/18/17 12/18/17 12/18/17 02:00 03:00 04:00 Temperature 36.7 C Heart Rate [ 55 L 53 L 60 Monitoring electrodes] Respiratory 19 15 14 Rate Blood Pressure 127/76 112/67 125/85 H [Left Brachial artery] O2 Saturation 96 98 98 12/18/17 12/18/17 12/18/17 05:00 06:00 07:00 Temperature Heart Rate [ 58 L 59 L 57 L Monitoring electrodes] Respiratory 16 15 22 Rate Blood Pressure 113/67 144/82 H 106/62 [Left Brachial artery] O2 Saturation 100 100 96 12/18/17 12/18/17 12/18/17 07:30 08:00 09:00 Temperature 36.7 C Heart Rate [ 59 L 64 54 L Monitoring electrodes] Respiratory 19 14 16 Rate Blood Pressure 106/62 116/81 H 145/77 H [Left Brachial artery] O2 Saturation 100 12/18/17 12/18/17 12/18/17 10:00 11:00 12:00 Temperature 37.0 C Heart Rate [ 54 L 56 L 48 L Monitoring electrodes] Respiratory 12 18 16 Rate Blood Pressure 123/80 132/81 H 160/90 H [Left Brachial artery] O2 Saturation 132 H 12/18/17 12:50 Temperature Heart Rate [ 64 Monitoring electrodes] Respiratory 19 Rate Blood Pressure 123/74 [Left Brachial artery] O2 Saturation 99 Oxygen O2 Source Room air I&O (Last 24 Hrs): Intake and Output Totals x24h 12/16/17 12/17/17 12/18/17 23:59 23:59 23:59 Intake Total 3873.333 7544.533 3240.000 Output Total 775 4650 2625 Balance 3098.333 2894.533 615.000 General: Other (Appears fatigued, speech is slow but appropriate. Sitting up in a chair.) HEENT: Mucous membr. moist/pink Neck: Supple Neuro: Other (Slow speech.) Cardiovascular: Regular rate, No murmurs Respiratory: No respiratory distress, Breath sounds nml Abdomen: Soft Extremities: No edema - Results Results: Laboratory Results WBC 7.3 x10^3/uL (4.8-10.8) 12/18/17 05:10 RBC 3.43 10^6/uL (4.70-6.10) L 12/18/17 05:10 Hgb 12.6 g/dL (14.0-18.0) L 12/18/17 05:10 Hct 35.1 % (42.0-52.0) L 12/18/17 05:10 MCV 102.4 fL (80.0-94.0) H 12/18/17 05:10 MCH 36.8 pg (27.0-31.0) H 12/18/17 05:10 MCHC 36.0 g/dL (32.0-36.0) 12/18/17 05:10 RDW 12.1 % (12.0-15.0) 12/18/17 05:10 Plt Count 174 10^3/uL (130-450) 12/18/17 05:10 MPV 7.9 fL (7.4-11.4) 12/18/17 05:10 Neut # (Auto) 4.5 10^3/uL (1.5-6.6) 12/18/17 05:10 Lymph # (Auto) 2.0 10^3/uL (1.5-3.5) 12/18/17 05:10 [place] # (Auto) 0.6 10^3/uL (0.0-1.0) 12/18/17 05:10 Eos # (Auto) 0.2 10^3/uL (0.0-0.7) 12/18/17 05:10 Baso # (Auto) 0.0 10^3/uL (0.0-0.1) 12/18/17 05:10 Absolute Nucleated RBC 0.01 x10^3/uL 12/18/17 05:10 Nucleated RBC % 0.1 /100WBC 12/18/17 05:10 VBG pH 7.338 (7.31-7.41) 12/17/17 07:25 Ionized Calcium 1.09 mmol/L (1.15-1.33) L 12/17/17 07:25 Sodium 140 mmol/L (135-145) 12/18/17 05:10 Potassium 3.6 mmol/L (3.5-5.0) 12/18/17 05:10 Chloride 108 mmol/L (101-111) 12/18/17 05:10 Carbon Dioxide 27 mmol/L (21-32) 12/18/17 05:10 Anion Gap 5.0 (6-13) L 12/18/17 05:10 BUN 6 mg/dL (6-20) 12/18/17 05:10 Creatinine 0.6 mg/dL (0.6-1.2) 12/18/17 05:10 Estimated GFR (MDRD) 134 (>89) 12/18/17 05:10 Glucose 110 mg/dL (70-100) H 12/18/17 05:10 POC Whole Bld Glucose 129 mg/dL (70 - 100) H 12/16/17 17:36 Lactic Acid 1.1 mmol/L (0.5-2.2) 12/16/17 14:40 Calcium 8.2 mg/dL (8.5-10.3) L 12/18/17 05:10 Phosphorus 2.8 mg/dL (2.5-4.6) 12/18/17 05:10 Magnesium 1.9 mg/dL (1.7-2.8) 12/18/17 05:10 Total Bilirubin 0.7 mg/dL (0.2-1.0) 12/18/17 05:10 AST 56 IU/L (10-42) H 12/18/17 05:10 ALT 30 IU/L (10-60) 12/18/17 05:10 Alkaline Phosphatase 40 IU/L (42-121) L 12/18/17 05:10 Troponin I < 0.04 ng/mL (<0.49) 12/16/17 07:40 Total Protein 5.5 g/dL (6.7-8.2) L 12/18/17 05:10 Albumin 3.3 g/dL (3.2-5.5) 12/18/17 05:10 Globulin 2.2 g/dL (2.1-4.2) 12/18/17 05:10 Albumin/Globulin Ratio 1.5 (1.0-2.2) 12/18/17 05:10 Lipase 25 U/L (22-51) 12/16/17 07:40 Vitamin B12 359 pg/mL (180-914) 12/17/17 05:03 Folate 19.46 ng/mL (5.90 - >24.8) 12/17/17 05:03 Urine Color YELLOW 12/16/17 09:20 Urine Clarity CLEAR (CLEAR) 12/16/17 09:20 Urine pH 6.5 PH (5.0-7.5) 12/16/17 09:20 Ur Specific [place] 1.020 (1.002-1.030) 12/16/17 09:20 Urine Protein NEGATIVE mg/dL (NEGATIVE) 12/16/17 09:20 Urine Glucose (UA) NEGATIVE mg/dL (NEGATIVE) 12/16/17 09:20 Urine Ketones NEGATIVE mg/dL (NEGATIVE) 12/16/17 09:20 Urine Occult Blood NEGATIVE (NEGATIVE) 12/16/17 09:20 Urine Nitrite NEGATIVE (NEGATIVE) 12/16/17 09:20 Urine Bilirubin NEGATIVE (NEGATIVE) 12/16/17 09:20 Urine Urobilinogen 0.2 (NORMAL) E.U./dL (NORMAL) 12/16/17 09:20 Ur Leukocyte Esterase NEGATIVE (NEGATIVE) 12/16/17 09:20 Ur Microscopic Review NOT INDICATED 12/16/17 09:20 Urine Culture Comments NOT INDICATED 12/16/17 09:20 Urine Opiates Screen NEGATIVE (NEGATIVE) 12/16/17 09:20 Ur Oxycodone Screen NEGATIVE (NEGATIVE) 12/16/17 09:20 Urine Methadone Screen NEGATIVE (NEGATIVE) 12/16/17 09:20 Ur Propoxyphene Screen NEGATIVE (NEGATIVE) 12/16/17 09:20 Ur Barbiturates Screen NEGATIVE (NEGATIVE) 12/16/17 09:20 Ur Tricyclics Screen NEGATIVE (NEGATIVE) 12/16/17 09:20 Ur Phencyclidine Scrn NEGATIVE (NEGATIVE) 12/16/17 09:20 Ur Amphetamine Screen NEGATIVE (NEGATIVE) 12/16/17 09:20 U Methamphetamines Scrn NEGATIVE (NEGATIVE) 12/16/17 09:20 U Benzodiazepines Scrn NEGATIVE (NEGATIVE) 12/16/17 09:20 Urine Cocaine Screen NEGATIVE (NEGATIVE) 12/16/17 09:20 U Cannabinoids Screen NEGATIVE (NEGATIVE) 12/16/17 09:20 Ethyl Alcohol 7.5 mg/dL 12/16/17 07:40
[2017-12-19 05:48] LABS: BASOPHILS % (AUTO) 0.5 %; EOSINOPHILS # (AUTO) 0.2 10^3/uL (0.0-0.7); EOSINOPHILS % (AUTO) 3.1 %; LYMPHOCYTES # (AUTO) 1.8 10^3/uL (1.5-3.5); MEAN CORPUSCULAR HEMOGLOBIN 36.2 pg (27.0-31.0); MEAN CORPUSCULAR HGB CONC 36.1 g/dL (32.0-36.0); MEAN CORPUSCULAR VOLUME 100.2 fL (80.0-94.0); MEAN PLATELET VOLUME 8.2 fL (7.4-11.4); MONOCYTES # (AUTO) 0.6 10^3/uL (0.0-1.0); MONOCYTES % (AUTO) 8.5 %; NEUTROPHILS # (AUTO) 4.4 10^3/uL (1.5-6.6); NEUTROPHILS % (AUTO) 61.9 %; PLT - PLATELET COUNT 176 10^3/uL (130-450); RED CELL DISTRIBUTION WIDTH 11.9 % (12.0-15.0)
[2017-12-19 06:03] LABS: ALBUMIN 3.4 g/dL (3.2-5.5); ALBUMIN/GLOBULIN RATIO 1.5 (1.0-2.2); BILIRUBIN,TOTAL 0.8 mg/dL (0.2-1.0); CALCIUM 8.4 mg/dL (8.5-10.3); CREATININE 0.6 mg/dL (0.6-1.2); MAGNESIUM 1.9 mg/dL (1.7-2.8); PHOSPHORUS 3.5 mg/dL (2.5-4.6); TOTAL PROTEIN 5.6 g/dL (6.7-8.2)
[2017-12-19] MEDS: PANTOPRAZOLE 40 MG TABLET PO SCH (06:52)
[2017-12-19] MEDS ORDERED: POTASSIUM CHLORIDE 20 MEQ TABLET PO ONE (07:00)
[2017-12-19] MEDS ORDERED: POTASSIUM CHLORIDE 20 MEQ/15 ML UDC PO ONE (07:00)
[2017-12-19] MEDS: POLYETHYLENE GLYCOL 3350 17 GM PACKET PO SCH (08:21)
[2017-12-19] MEDS: SODIUM CHLORIDE FLUSH 0.9% 10 ML SYRINGE IVP SCH (08:21)
[2017-12-19] MEDS: THIAMINE 100 MG TABLET PO SCH (08:22)
--- NOTE | 2017-12-19 13:52 | PROVIDER PROGRESS NOTE ---
Subjective - Prog Note Date Prog Note Date: 12/19/17 Prog Note Time: 14:02 - Subjective Pt reports feeling: Improved Subjective: He tells me that he is improved physically, but mentally the depression is starting to creep back. He is tearful. He knows that he still depressed and it is getting worse again. He does know what he will do. He does know that he does not want to tell people the truth because he wants to tell them what they want to hear. Current Medications - Current Medications Current Medications: Active Medications Acetaminophen (Tylenol) 650 mg PO Q4HR PRN PRN Reason: Pain or Fever > 38C (100.4F) Lorazepam (Ativan Inj (Vial)) 2 mg IVP Q2H PRN PRN Reason: Anxiety Last Admin: 12/17/17 06:38 Dose: 2 mg Ondansetron HCl (Zofran Inj) 4 mg IVP Q4HR PRN PRN Reason: Nausea / Vomiting Pantoprazole Sodium (Protonix) 40 mg PO QDAC [facility] Last Admin: 12/19/17 06:52 Dose: 40 mg Polyethylene Glycol (Miralax) 17 gm PO DAILY [facility] Last Admin: 12/19/17 08:21 Dose: 17 gm Potassium Chloride () 20 meq PO DAILYWM [facility] Prochlorperazine Edisylate (Compazine Inj) 10 mg IVP Q6HR PRN PRN Reason: Nausea / Vomiting Sodium Chloride (Normal Saline Flush 0.9%) 10 ml IVP 0100,0900,1700 [facility] Last Admin: 12/19/17 08:21 Dose: 10 ml Sodium Chloride (Normal Saline Flush 0.9%) 10 ml IVP PRN PRN PRN Reason: NEEDED PER PROVIDER ORDERS Last Admin: 12/18/17 02:51 Dose: 10 ml Thiamine HCl (Vitamin B-1) 100 mg PO DAILY [facility] Last Admin: 12/19/17 08:22 Dose: 100 mg Gabapentin [Neurontin] 600 mg PO TID 09/13/17 Propranolol HCl 20 mg PO DAILY PRN 12/18/17 Trazodone HCl 50 mg PO QPM PRN 12/18/17 buPROPion [Wellbutrin Xl] 150 mg PO DAILY 12/18/17 clonazePAM [Clonazepam] 0.25 mg PO BID 12/18/17 Objective - Vital Signs/Intake & Output Reviewed Vital Signs: Yes Vital Signs: Vital Signs x48h Temp Pulse Resp BP Pulse Ox 12/19/17 13:00 53 L 17 132/93 H 12/19/17 12:00 37.3 C 67 14 133/89 H 99 12/19/17 11:00 51 L 15 149/84 H 12/19/17 10:00 68 19 115/78 12/19/17 09:00 37.1 C 70 21 125/80 97 12/19/17 08:00 51 L 15 141/99 H 12/19/17 07:00 36.6 C 52 L 11 L 135/76 H 12/19/17 06:00 56 L 18 127/80 Intake & Output: Intake & Output 12/16/17 12/17/17 12/18/17 12/19/17 23:59 23:59 23:59 23:59 Intake Total 3873.333 7544.533 3510.000 920 Output Total 775 4650 2625 Balance 3098.333 2894.533 885.000 920 - Objective General Appearance: positive: Alert, Mild distress (Tearful about his depression ) Eyes Bilateral: positive: PERRL, EOMI ENT: positive: Pharynx nml Neck: positive: No JVD. negative: Stiff neck, Carotid bruit Respiratory: positive: Chest non-tender. negative: Wheezes, Rales, Rhonchi Cardiovascular: positive: Regular rate & rhythm. negative: Systolic murmur, Gallop/S4, Friction rub Abdomen: positive: Non-tender, No organomegaly, Nml bowel sounds. negative: Guarding, Rebound Skin: positive: Warm, Dry Extremities: positive: Full ROM, No pedal edema Neurologic/Psychiatric: positive: Oriented x3, CN's nml (2-12), Motor nml, Depressed mood/affect. negative: Weakness Reflexes: Bicep (R): 2+, Bicep (L): 2+, Knee (R): 2+, Knee (L): 2+, Ankle (R): 0 , Ankle (L): 0 Babinski Reflex: Right: Down, Left: Down - Lab Results Fish Bones: 12/19/17 05:04 12/19/17 05:04 Other Labs: Lab Results x24hrs 12/19/17 12/19/17 Range/Units 05:04 05:04 WBC 7.0 (4.8-10.8) x10^3/uL RBC 3.60 L (4.70-6.10) 10^6/uL Hgb 13.0 L (14.0-18.0) g/dL Hct 36.1 L (42.0-52.0) % MCV 100.2 H (80.0-94.0) fL MCH 36.2 H (27.0-31.0) pg MCHC 36.1 H (32.0-36.0) g/dL RDW 11.9 L (12.0-15.0) % Plt Count 176 (130-450) 10^3/uL MPV 8.2 (7.4-11.4) fL Neut # (Auto) 4.4 (1.5-6.6) 10^3/uL Lymph # (Auto) 1.8 (1.5-3.5) 10^3/uL [place] # (Auto) 0.6 (0.0-1.0) 10^3/uL Eos # (Auto) 0.2 (0.0-0.7) 10^3/uL Baso # (Auto) 0.0 (0.0-0.1) 10^3/uL Absolute Nucleated RBC 0.00 x10^3/uL Nucleated RBC % 0.0 /100WBC Sodium 142 (135-145) mmol/L Potassium 3.4 L (3.5-5.0) mmol/L Chloride 107 (101-111) mmol/L Carbon Dioxide 26 (21-32) mmol/L Anion Gap 9.0 (6-13) BUN 7 (6-20) mg/dL Creatinine 0.6 (0.6-1.2) mg/dL Estimated GFR (MDRD) 134 (>89) Glucose 103 H (70-100) mg/dL Calcium 8.4 L (8.5-10.3) mg/dL Phosphorus 3.5 (2.5-4.6) mg/dL Magnesium 1.9 (1.7-2.8) mg/dL Total Bilirubin 0.8 (0.2-1.0) mg/dL AST 45 H (10-42) IU/L ALT 31 (10-60) IU/L Alkaline Phosphatase 41 L (42-121) IU/L Total Protein 5.6 L (6.7-8.2) g/dL Albumin 3.4 (3.2-5.5) g/dL Globulin 2.2 (2.1-4.2) g/dL Albumin/Globulin Ratio 1.5 (1.0-2.2) ABX Reporting Has patient been on IV antibiotics over the past 48 hours?: No Assessment/Plan - Problem List (1) Intentional non-suicidal overdose involving multiple drugs Impression: Assessment/Plan: Initially we had a history that he took buspar, trazadone, neurontin but as he became more clear mentally, he admittd to Clonezepam. Yesterday, he also stated that he took "96 pills of Propranolol" . The pharmacy has the bottles which state Propranolol (not Propranolol [place]) 20 mg, 1 po daily prn anxiety. Since 12/18/am, his heart rate has bee 50's to 60's, once 70. BP normal. He is medically cleared. I will ask for [facility] evaluation. (2) Altered mental status Qualifiers: Altered mental status type: transient alteration of awareness Qualified Code(s): R40.4 - Transient alteration of awareness Assessment/Plan: The patient was lethargic with slow speech. Today is normal. He was able to remember and/or share more about the details of his drug ingestions on 12/18. He is awake enough to feed himself and tolerate solid food. He says that the last 3 days have actually been "a respite" from his own mind. Because he was a little confused, sedated, the reality of what he had done was not really present. Today it is. He is depressed. Tearful. Feels like the depression (and he points to his lower chest and upper abdomen) is starting to gather and spread and he feels like he will be as bad as he was when he wanted to kill himself. (3) Alcohol withdrawal Assessment/Plan: Patient remains on a CIWA protocol.But his score has not gone above 2. His alcohol level on admit was low. No hypertension, no sweats, no tremors, BP normal, no tachycardia. Medically cleared. Labs show no B12 or Folate deficiency. He has borderliine hypokalemia, will give 20 meq po to supplement. (4) Joint pain Assessment/Plan: iv NSASIDs are prescribed prn for pain. Change to po meds. Qualifiers: Encounter type: initial encounter Qualified Code(s): T50.902A - Poisoning by unspecified drugs, medicaments and biological substances, intentional self- harm, initial encounter
[2017-12-19] MEDS ORDERED: POTASSIUM CHLORIDE 20 MEQ/15 ML UDC PO SCH (14:00)
--- NOTE | 2017-12-19 16:22 | Discharge Plan ---
Discharge Plan Disposition: 01 Home, Self Care Condition: Stable Diet: Regular Activity Restrictions: Activity as Tolerated Shower Restrictions: No Driving Restrictions: No Additional Instructions or Follow Up instructions: You were admitted to the hospital because of intentional overdose of multiple medications. You have now stabilized. Your blood pressure and pulse are normal. You were able to keep down food and ambulate in her room safely. You have been evaluated by a state mental health professional. You have explained that you are no longer suicidal and that you have adequate support through your buddhism and philosophical beliefs. You will be following up with a new psychiatrist in [place]. We hope that you will be able to maintain your level of hopefulness that is present right now. You have repeatedly stated that you are no longer going to try and kill yourself. Please see your primary care provider in follow-up. No Smoking: If you smoke, Please STOP! Call for help. Follow-up with: Ana M Andino PA [Primary Care Provider] -
[2017-12-19 17:34] VITALS: BP 114/85
--- NOTE | 2017-12-28 03:19 | DISCHARGE SUMMARY ---
Physician: Robina Shepherd MD DATE OF ADMISSION: 12/16/2017 DATE OF DISCHARGE: 12/19/2017 DISCHARGE DIAGNOSES 1. Metabolic encephalopathy secondary to #2. 2. Intentional suicidal overdose involving multiple drugs. 3. Alcohol withdrawal. 4. Joint pain. 5. History of depression. DISCHARGE MEDICATIONS 1. Wellbutrin XL 150 mg daily. 2. Clonazepam 0.25 mg p.o. b.i.d. 3. Neurontin 600 mg p.o. t.i.d. 4. Propranolol 20 mg daily. 5. Trazodone 50 mg q.p.m. PRINCIPAL PROCEDURES 1. Chest x-ray with no consolidation, no acute cardiopulmonary infiltrate. 2. Head CT without intracranial hemorrhage. No evidence of infarct, mass effect or acute abnormalit y. 3. Blood culture, positive for coagulase-negative staphylococci, positive at 5 days after admission, felt to be contamination. HOSPITAL COURSE: The patient is a 67-year-old, white male with a history of alcohol abuse, depressio n, complex PTSD, with possibly one prior suicide attempt. The found him groggy and unarousable on the morning of admission, and called 911. In the ambulance, he slowly began to awake and admitted to taking the entire contents of 3 of his pill bottles with intention to commit suicide. They were trazodone, bupropion and gabapentin. He was started on IV fluids and stabilized in the emergency gino m, slowly began to awaken over the next several hours. He is seeing a psychiatrist. HOSPITAL COURSE: The patient was placed in ICU, more for the alcohol abuse precautions than a true r eaction to the suicide attempt. He also admitted that he had been taking a bottle of propranolol and was bradycardic during the admission. He received one-to-one care for his suicidal risk. On rizwan , he had improved physically, was medically cleared, but starting to state that the depression w as creeping back in. He was tearful. He describes it as a generalized fullness in his abdomen, wher e it starts out small, grows big, and feels like it is moving up into his chest and suffocating him. He was starting to feel all of that again. He also told me that he does not want to tell people the truth of how he feels, because if he tells him that, they may institutionalize him. He says that he just wants to tell them what they want to hear. He also had problems with joint pain and received nonsteroidal therapy. Hypokalemia was treated with potassium supplementation. When he was medically cleared, [facility], who felt he was not at risk of suicide attempt, was not a harm to himself or others. As such, he was felt stable to return to home. He is going to follow up with a new psychiatrist and continue to see his mental health counselor. Greater than 30 minutes was spent coordinating discharge. PHYSICAL EXAMINATION VITAL SIGNS: At discharge temperature was 36.9, pulse 72, blood pressure 114/85, respirations 20, 9 8% on room air. GENERAL: He was alert, able to ambulate in his room and the hallway with his without any ataxia difficulty. LUNGS: Clear. HEART: Regular rate and rhythm. ABDOMEN: Soft, nontender. EXTREMITIES: Without edema. TD: 12/27/2017 23:34
== END 2017-12-19 17:30 | disposition home or self-care (01) | DRG 917 ==
LOC: EDUNIT# → ED 07:06 → SUPCPDRO 07:06 → ICU 10:46
PROVIDERS: ADMIT Internal Medicine; ATTEND Specialist
DX: T42.6X4A Poisoning by other antiepileptic and sedative-hypnotic drugs, undetermined, initial encounter (principal); R40.4 Transient alteration of awareness; T42.6X2A Poisoning by other antiepileptic and sedative-hypnotic drugs, intentional self-harm, initial encounter; G92 Toxic encephalopathy; T44.7X2A Poisoning by beta-adrenoreceptor antagonists, intentional self-harm, initial encounter; T42.4X2A Poisoning by benzodiazepines, intentional self-harm, initial encounter; I95.2 Hypotension due to drugs; R00.1 Bradycardia, unspecified; E86.0 Dehydration; E87.6 Hypokalemia; F32.9 Major depressive disorder, single episode, unspecified; F43.10 Post-traumatic stress disorder, unspecified; F10.10 Alcohol abuse, uncomplicated; M25.50 Pain in unspecified joint; G89.29 Other chronic pain; Z79.899 Other long term (current) drug therapy
CPT/HCPCS: 36415; 70450; 71046; 80053; 80306; 80320; 81001; 81003; 82330; 82607; 82746; 83605; 83690; 83735; 84100; 84484; 85025; 87040; 87086; 87150; 93005; 96360; 96361; 99284; 99285